=== PATIENT | female | born 1945 | race Caucasian/White ===

== ENCOUNTER → 2024-05-15 08:02 | Outpatient (REF) | payer MEDICARE, OTHER, SELFPAY ==
[2024-05-15 08:48] LABS: % Eosinophils 5.8 % (0-6); % Immature Granulocytes 0.4 % (0-0.5); % Monocytes 5.8 % (1.7-9.3); Absolute Basophils 0.1 10^3/uL (0-0.2); Absolute Eosinophils 0.3 10^3/uL (0-0.7); Absolute Lymphocytes 1.8 10^3/uL (1.2-3.4); Absolute Monocytes 0.3 10^3/uL (0.1-0.6); Absolute Neutrophils 2.4 10^3/uL (1.4-6.5); Hemoglobin 12.3 g/dL (12.0-16.0); Mean Corp Hgb Conc. 33.2 g/dL (33.0-37.0); Mean Corpuscular Hgb 29.7 pg (27.0-31.0); Mean Corpuscular Volume 89.4 fL (81.0-99.0); Mean Platelet Volume 10.1 fL (7.4-10.4); Nucleated Red Blood Cells % 0 %; Platelet Count 240 10^3/uL (130-400); Red Blood Cell Count 4.14 10^6/uL (4.20-5.40); Red Cell Dist. Width 12.7 % (11.5-14.5); White Blood Cell Count 4.8 10^3/uL (4.8-10.8)
[2024-05-15 09:53] LABS: ALT (SGPT) 11 U/L (0-35); AST (SGOT) 19 U/L (14-36); Albumin 4.5 g/dl (3.5-5.0); Alkaline Phosphatase 108 U/L (38-126); Blood Urea Nitrogen 27 mg/dl (7-17); Calcium 10.1 mg/dl (8.4-10.2); Carbon Dioxide 27 mmol/L (22-30); Chloride 104 mmol/L (98-107); Glucose 106 mg/dl (70-99); HDL Cholesterol 48 mg/dl; LDL Cholesterol, Calculated 218 mg/dl; Potassium 4.9 mmol/L (3.5-5.1); Sodium 141 mmol/L (135-145); Total Bilirubin 0.6 mg/dl (0.2-1.3); Total Cholesterol 311 mg/dl (50-199); Total Protein 7.1 g/dl (6.3-8.2); Triglyceride 229 mg/dl (10-149); Very Low Density Lipoprotein 45 mg/dl (0-30); eGFR > 60.00
[2024-05-15 09:55] LABS: TSH 2.76 uIU/ml (0.47-4.68)
== END ==
LOC: REG 08:02
PROVIDERS: ATTENDING PHYSICIAN Internal Medicine Cardiovascular Disease; FAMILY PHYSICIAN Specialist
DX: R07.9 Chest pain, unspecified (principal)
CPT/HCPCS: 36415; 80053; 80061; 84443; 85025

== ENCOUNTER → 2024-05-25 17:35 | Outpatient (REF) | payer MEDICARE, OTHER, SELFPAY | LOC: HWRCS 17:35 | PROVIDERS: ATTENDING PHYSICIAN Internal Medicine Cardiovascular Disease; FAMILY PHYSICIAN Specialist | DX: R07.9 Chest pain, unspecified (principal) | CPT/HCPCS: 93306 ==

== ENCOUNTER → 2024-10-01 09:19 | Outpatient (REF) | payer MEDICARE, OTHER, SELFPAY ==
[2024-10-01 10:16] LABS: % Basophils 1.2 % (0-2); % Immature Granulocytes 0.2 % (0-0.5); % Lymphocytes 34.1 % (20.5-51.1); % Monocytes 5.8 % (1.7-9.3); % Neutrophils 52.7 % (42.2-75.2); Absolute Basophils 0.1 10^3/uL (0-0.2); Absolute Eosinophils 0.3 10^3/uL (0-0.7); Absolute Lymphocytes 1.4 10^3/uL (1.2-3.4); Absolute Monocytes 0.2 10^3/uL (0.1-0.6); Absolute Neutrophils 2.2 10^3/uL (1.4-6.5); Hematocrit 37.8 % (37.0-47.0); Hemoglobin 12.6 g/dL (12.0-16.0); Mean Corp Hgb Conc. 33.3 g/dL (33.0-37.0); Mean Corpuscular Volume 86.9 fL (81.0-99.0); Mean Platelet Volume 10.2 fL (7.4-10.4); Nucleated Red Blood Cells % 0 %; Platelet Count 244 10^3/uL (130-400); Red Blood Cell Count 4.35 10^6/uL (4.20-5.40); Red Cell Dist. Width 13.4 % (11.5-14.5); White Blood Cell Count 4.1 10^3/uL (4.8-10.8)
[2024-10-01 10:28] LABS: Urine Albumin Negative (Neg - Trace); Urine Bilirubin Negative (Negative); Urine Character Clear (Clear); Urine Color Yellow; Urine Glucose Negative (Negative); Urine Ketone Negative (Negative); Urine Leukocyte Negative (Negative); Urine Nitrite Negative (Negative); Urine Occult Blood Negative (Negative); Urine Specific Gravity 1.015 (<1.030); Urine Urobilinogen Negative (Neg - 1+)
[2024-10-01 11:09] LABS: ALT (SGPT) 10 U/L (0-35); AST (SGOT) 17 U/L (14-36); Albumin 4.7 g/dl (3.5-5.0); Alkaline Phosphatase 94 U/L (38-126); Blood Urea Nitrogen 32 mg/dl (7-17); Calcium 10.2 mg/dl (8.4-10.2); Carbon Dioxide 30 mmol/L (22-30); Chloride 101 mmol/L (98-107); Glucose 115 mg/dl (70-99); HDL Cholesterol 45 mg/dl; Iron 84 ug/dl (37-170); Potassium 4.5 mmol/L (3.5-5.1); Sodium 141 mmol/L (135-145); Total Bilirubin 0.4 mg/dl (0.2-1.3); Total Protein 7.2 g/dl (6.3-8.2); Triglyceride 297 mg/dl (10-149); Very Low Density Lipoprotein 59 mg/dl (0-30); eGFR > 60.00
[2024-10-01 11:18] LABS: Percent Saturation 24 % (20-50); Total Iron Binding Capacity 338 ug/dl (265-497)
[2024-10-01 11:19] LABS: LDL Cholesterol, Calculated 220 mg/dl; Total Cholesterol 324 mg/dl (50-199)
[2024-10-01 11:20] LABS: Free T4 1.26 ng/dl (0.78-2.19)
[2024-10-01 11:27] LABS: Glycohemoglobin (HgbA1c) 5.7 % (4.0-5.6)
[2024-10-01 11:34] LABS: TSH 0.81 uIU/ml (0.47-4.68)
== END ==
LOC: REG 09:19
PROVIDERS: ATTENDING PHYSICIAN Nurse Practitioner Adult Health; FAMILY PHYSICIAN Internal Medicine Cardiovascular Disease
DX: E03.9 Hypothyroidism, unspecified (principal); R42 Dizziness and giddiness; E78.2 Mixed hyperlipidemia; I10 Essential (primary) hypertension; R79.9 Abnormal finding of blood chemistry, unspecified; D64.9 Anemia, unspecified
CPT/HCPCS: 36415; 72040; 80053; 80061; 81003; 83036; 83540; 83550; 84439; 84443; 85025

== ENCOUNTER → 2024-10-05 11:52 | Outpatient (REF) | payer MEDICARE, OTHER, SELFPAY | LOC: PAVMRI 11:52 | PROVIDERS: ATTENDING PHYSICIAN Nurse Practitioner Adult Health | DX: R42 Dizziness and giddiness (principal) | CPT/HCPCS: 70551 ==

== ENCOUNTER → 2024-10-29 13:32 | Outpatient (REF) | payer MEDICARE, OTHER, SELFPAY | LOC: RAD 13:32 | PROVIDERS: ATTENDING PHYSICIAN Nurse Practitioner Adult Health | DX: M25.551 Pain in right hip (principal) | CPT/HCPCS: 73502 ==

== ENCOUNTER → 2024-11-16 07:06 | Outpatient (REF) | payer MEDICARE, OTHER, SELFPAY | LOC: HWRAD 07:06 | PROVIDERS: ATTENDING PHYSICIAN Nurse Practitioner Adult Health | DX: R10.2 Pelvic and perineal pain (principal) | CPT/HCPCS: 76857 ==

== ENCOUNTER → 2025-03-22 12:49 | Outpatient (REF) | payer OTHER, SELFPAY | LOC: PAVMRI 12:49 | PROVIDERS: ATTENDING PHYSICIAN Otolaryngology | DX: H90.3 Sensorineural hearing loss, bilateral (principal); D33.3 Benign neoplasm of cranial nerves | CPT/HCPCS: 70551 ==

== ENCOUNTER → 2025-08-13 06:37 | Outpatient (REF) | payer OTHER, SELFPAY | LOC: MRI 06:37 | PROVIDERS: ATTENDING PHYSICIAN Nurse Practitioner Adult Health | DX: R10.2 Pelvic and perineal pain (principal); R35.0 Frequency of micturition; K59.00 Constipation, unspecified; M25.551 Pain in right hip | CPT/HCPCS: 72195 ==

== ENCOUNTER → 2025-08-13 08:03 | Outpatient (REF) | payer OTHER, SELFPAY ==
[2025-08-13 08:56] LABS: Hematocrit 37.2 % (37.0-47.0); Hemoglobin 12.1 g/dL (12.0-16.0); Mean Corp Hgb Conc. 32.5 g/dL (33.0-37.0); Mean Corpuscular Volume 89.6 fL (81.0-99.0); Nucleated Red Blood Cells % 0 %; Platelet Count 269 10^3/uL (130-400); Red Cell Dist. Width 12.8 % (11.5-14.5)
[2025-08-13 09:16] LABS: ALT (SGPT) < 10 U/L (0-35); AST (SGOT) 14 U/L (14-36); Albumin 4.5 g/dl (3.5-5.0); Alkaline Phosphatase 80 U/L (38-126); Blood Urea Nitrogen 15 mg/dl (7-17); Calcium 9.6 mg/dl (8.4-10.2); Carbon Dioxide 31 mmol/L (22-30); Chloride 103 mmol/L (98-107); Glucose 115 mg/dl (70-99); HDL Cholesterol 50 mg/dl; LDL Cholesterol, Calculated 168 mg/dl; Potassium 3.8 mmol/L (3.5-5.1); Sodium 142 mmol/L (135-145); Total Protein 6.9 g/dl (6.3-8.2); Very Low Density Lipoprotein 49 mg/dl (0-30); eGFR > 60.00
[2025-08-13 09:24] LABS: Vitamin D, 25-OH*** 30.4 ng/mL (30-80)
[2025-08-13 09:37] LABS: TSH 2.92 uIU/ml (0.47-4.68); Urine Character Clear (Clear)
[2025-08-13 09:48] LABS: Urine Red Blood Cell 0-2 /HPF (0-2); Urine Squamous Cell 21-25 /LPF (Few)
[2025-08-13 09:51] LABS: Glycohemoglobin (HgbA1c) 5.7 % (4.0-5.6)
== END ==
LOC: REG 08:03
PROVIDERS: ATTENDING PHYSICIAN Nurse Practitioner Adult Health
DX: I10 Essential (primary) hypertension (principal); E78.2 Mixed hyperlipidemia; E55.9 Vitamin D deficiency, unspecified; R73.9 Hyperglycemia, unspecified; E03.9 Hypothyroidism, unspecified
CPT/HCPCS: 80053; 80061; 81003; 81015; 82306; 83036; 84439; 84443; 85025; 87086

== ENCOUNTER 2025-09-20 10:34 | Emergency (ER) | payer OTHER, SELFPAY ==
[2025-09-20 11:01] VITALS: BP 138/76
[2025-09-20 11:57] VITALS: BP 169/82
--- NOTE | 2025-09-20 12:06 | ED.GENMED ---
History of Present Illness
General
Chief Complaint: Heart Rate Problem
Source: patient
Exam Limitations: none
Time Seen by Provider: 09/20/25 11:32
Nursing documentation reviewed up to this point in time: agreed with
History of Present Illness
History of Present Illness:
Note:
CHIEF COMPLAINT(S)
The patient is undergoing pre-operative testing where an abnormal EKG was discovered, leading to the current evaluation.
HISTORY OF PRESENT ILLNESS
The patient is a 80-year-old female who was found to have an abnormal EKG during pre-operative testing. She reports no current symptoms of chest pain or difficulty breathing. She mentions having pain at the site where she will have surgery, but no
fever is reported. The patient has a known history of atrial fibrillation diagnosed approximately four months prior, for which she follows up with a android architect. She has an upcoming cardiology appointment in November for a checkup. The concern with
atrial fibrillation includes the risk of thromboembolic events such as stroke due to potential blood pooling in the atria. The plan includes monitoring and discussion with a android architect to determine whether hospital admission or discharge with
medication is appropriate.
EXTERNAL RECORDS REVIEWED
The patient had prior cardiology consultations, and the name of the physician was ambiguous in the note, but an attempt to verify it revealed it might be Dr. Banks or a female android architect at a listed address known to the patient.
CHRONIC MEDICAL CONDITIONS SIGNIFICANTLY AFFECTING CARE
The patient has a documented history of atrial fibrillation.
REVIEW OF SYSTEMS
- Cardiovascular: History of atrial fibrillation.
- Neurological: No reported weakness or neurological deficits.
PHYSICAL EXAM
General: Alert, no acute distress.
Skin: Warm, dry.
Head: Normocephalic, atraumatic.
Neck: Supple, trachea midline.
Eyes, Ears, Nose, Mouth, and Throat: Oral mucosa moist.
Cardiovascular: Normal peripheral perfusion, No edema.
Respiratory: Respirations are non-labored.
Gastrointestinal: Abdomen nondistended.
Back: Normal range of motion, Normal alignment.
Musculoskeletal: Normal range of motion, normal strength.
Neurological: Alert and oriented to person, place, time, and situation, No focal neurological deficit observed.
Psychiatric: Cooperative, appropriate mood & affect.
PROBLEM LIST
Acute:
- Abnormal EKG during pre-operative testing
- Pain at surgical site
Chronic:
- Atrial fibrillation
PLAN
- Perform blood tests to assess current status.
- Consult with the patients android architect for further management advice.
- Monitor the patient to determine whether hospital admission is necessary or if the patient can be discharged with medications.
DIFFERENTIAL DIAGNOSIS
The Differential Diagnosis includes, in no particular order and is not limited to:
1. Atrial fibrillation
2. Other arrhythmias
3. Myocardial ischemia
4. Pulmonary embolism
5. Heart failure
6. Pericarditis
7. Valvular heart disease
8. Electrolyte abnormalities
9. Hypertensive crisis
10. Other non-cardiac causes like anxiety or pain at the surgical site.
Disposition:
SUMMARY OF ENCOUNTER
The patient, a 80-year-old female with a history of atrial fibrillation, was evaluated in the emergency department due to an abnormal EKG found during pre-operative testing. She was asymptomatic, with stable blood pressure. No indication for
antiarrhythmic medication was noted due to the presence of bradycardia.
DISPOSITION
The patient was discharged with instructions to follow up with her android architect.
MANAGEMENT OF THE PATIENTS CARE WAS DISCUSSED WITH
Management was discussed with Dr. Jeff Nuñez, a android architect.
PLAN
The patient is to follow up with her android architect.
MEDICATION RECONCILIATION
Apixaban 5 mg twice daily was prescribed for anticoagulation management in atrial fibrillation.
MEDICAL DECISION MAKING
-Complexity of Data Reviewed: Chronic conditions affecting care [Atrial fibrillation]
-Data:
Category 3
Discussion of management of the patients care was conducted with Dr. Jeff Nuñez, android architect.
-Risk:
Prescription medication was prescribed: Apixaban for anticoagulation in atrial fibrillation.
DIAGNOSIS
1. Atrial fibrillation (ICD-10: I48.91)
Past History
Past History
ED Past Medical History: HTN
ED Past Surgical History: Appendectomy
Social History
Tobacco: Former smoker
Personal:
Living: with family
Employment: Retired
Phy Exam
Physical Exam
Physical Exam:
.
Course
Orders/Labs/Results
Orders:
Orders
09/20/25 11:16
EKG [Electrocardiogram (*1)] Urgent
Reason for Study: PreOp
EKG- Treatment ONCE
09/20/25 11:51
Cardiac Monitoring- Treatment ONCE
IV Insert/Care/Rem.- Treatment PRN
09/20/25 12:07
Troponin I Urgent
09/20/25 12:21
Complete Blood Count/With Diff Urgent
Comprehensive Metabolic Panel Urgent
Magnesium Urgent
Abnormal Lab Results
09/20/25
12:21
RBC 4.19 L 10^6/uL
(4.20-5.40)
Hct 36.9 L %
(37.0-47.0)
MCHC 32.8 L g/dL
(33.0-37.0)
Eosinophils % 7.4 H %
(0-6)
BUN 18 H mg/dl
(7-17)
Glucose 108 H mg/dl
(70-99)
09/20/25 12:21
09/20/25 12:21
Vital Signs
Initial and Last Documented VS:
Initial Vital Signs
Temp Pulse Resp BP Pulse Ox
98.1 F 44 18 138/76 98
09/20/25 11:01 09/20/25 11:01 09/20/25 11:01 09/20/25 11:01 09/20/25 11:01
Last Documented Vital Signs
Temp Pulse Resp BP Pulse Ox
98.1 F 54 13 148/71 94
09/20/25 11:01 09/20/25 13:01 09/20/25 13:01 09/20/25 13:01 09/20/25 13:01
*Pulse Oximetry
SaO2: 96
Patient hypoxic: no
*Critical Care Note
Total Time (30-74mins, 75-104mins- exclusive of procedures): Not Applicable
ED Attending Note
-
Portions of this chart may have been created with voice recognition software.� Occasional wrong word or��sound alike� substitutions may have occurred due to the inherent limitations of voice recognition software.
Discharge Plan
Departure
Patient Disposition: Home (Routine Discharge)
Date of Disposition: 09/20/25
Time of Disposition: 13:11
Patient with high blood pressure during this ER visit?: Yes
Condition: Good
Discharge Problem:
Atrial fibrillation
Instructions: Atrial Fibrillation (DC), BLOOD PRESSURE
Prescriptions:
New
Eliquis 5 mg tablet
5 mg PO BID Qty: 60 0RF
No Action
oxycodone-acetaminophen 1 TABLET tablet
1 - 2 tab PO Q4HPRN PRN (Reason: prn for pain) Qty: 20 0RF
Patient Comments:
havent taken
cetirizine 10 MG tablet
10 mg PO DAILY
valsartan-hydrochlorothiazide 1 EACH tablet
12.5 mg PO DAILY
Patient Comments:
12.5 mg daily
levothyroxine 50 MCG tablet
50 mcg PO DAILY
olmesartan [Benicar] 40 MG tablet
12.5 mg PO Daily
Patient Comments:
Pt unsure of when last taken medication
omeprazole magnesium [Prilosec OTC] 20 MG tablet,delayed release (DR/EC)
20 mg PO Daily
cholecalciferol (vitamin D3) 2,000 UNIT tablet
2,000 unit PO Daily
Referrals:
Tere Medrano NP [Family Provider, Family Practice]
Brie Andrews DO [Active, Cardiology] - 09/21/25 9:00 am
Referral Note: You are scheduled to have placement of a [address] monitor [address] Dr. Andrews's office in the [place] on 09/21/2025 at 9 AM. You are then scheduled for an echocardiogram (ultrasound of the heart) at the [facility]
office on 09/29/2025 at 4 PM. The office is working on an appointment for you to see Dr. Andrews in the office coming up. Please call [phone] if you need to reschedule
Interventions
Interventions:
*Risk Screen - Suicide Last Done: 09/20/25 12:24
*General Assessment Last Done: 09/20/25 11:38
*Neglect/Abuse Screening Last Done: 09/20/25 12:24
*ED COVID-19 Vaccine History Last Done: 09/20/25 12:24
*ED Influenza Vaccine History Last Done: 09/20/25 12:24
*Nursing Disposition Last Done: 09/20/25 13:38
ED- Cardiac Assessment Last Done: 09/20/25 11:38
ED- Pulmonary Assessment Last Done: 09/20/25 11:38
Discharge Date and Time
Discharge Date/Time: 09/20/25 13:38
Print Language: DUTCH
[2025-09-20 12:23] VITALS: BMI 31.2
[2025-09-20 12:33] LABS: Hematocrit 36.9 % (37.0-47.0); Hemoglobin 12.1 g/dL (12.0-16.0); Mean Corp Hgb Conc. 32.8 g/dL (33.0-37.0); Mean Corpuscular Volume 88.1 fL (81.0-99.0); Nucleated Red Blood Cells % 0 %; Platelet Count 271 10^3/uL (130-400); Red Cell Dist. Width 13.4 % (11.5-14.5)
[2025-09-20 12:44] LABS: ALT (SGPT) < 10 U/L (0-35); AST (SGOT) 15 U/L (14-36); Albumin 4.4 g/dl (3.5-5.0); Alkaline Phosphatase 86 U/L (38-126); Blood Urea Nitrogen 18 mg/dl (7-17); Calcium 9.2 mg/dl (8.4-10.2); Carbon Dioxide 28 mmol/L (22-30); Chloride 102 mmol/L (98-107); Estimated Creatinine Clearance 58 ml/min; Glucose 108 mg/dl (70-99); Magnesium 1.7 mg/dl (1.6-2.3); Potassium 3.6 mmol/L (3.5-5.1); Sodium 136 mmol/L (135-145); Total Protein 7.1 g/dl (6.3-8.2); eGFR > 60.00
[2025-09-20 12:50] LABS: Troponin I < 0.012 ng/ml
[2025-09-20 13:01] VITALS: BP 148/71
== END 2025-09-20 13:38 | disposition home or self-care (01) ==
LOC: EMR 10:34
PROVIDERS: EMERGENCY PHYSICIAN Emergency Medicine; FAMILY PHYSICIAN Nurse Practitioner Adult Health
DX: I48.91 Unspecified atrial fibrillation (principal); I10 Essential (primary) hypertension; Z79.01 Long term (current) use of anticoagulants; Z87.891 Personal history of nicotine dependence
CPT/HCPCS: 99284; 80053; 83735; 84484; 85025; 93005

== ENCOUNTER → 2025-09-29 15:48 | Outpatient (REF) | payer OTHER, SELFPAY | LOC: HWRCS 15:48 | PROVIDERS: ATTENDING PHYSICIAN Internal Medicine Cardiovascular Disease; FAMILY PHYSICIAN Specialist | DX: I48.0 Paroxysmal atrial fibrillation (principal); I10 Essential (primary) hypertension | CPT/HCPCS: 93306 ==

== ENCOUNTER 2025-10-06 06:37 | Day surgery (SDC) | payer OTHER, SELFPAY ==
--- NOTE | 2025-09-20 10:41 | PTCARENOTE ---
Addendum entered by Oanh Smiley RN 09/20/25 10:52:
'informed' that a cardiac clearance.....
Original Note:
New onset Afib on today's Preadmission ECG. Patient denies ever having a history afib or any other cardiac problems. She is asymptomatic and color is good. BP 140/74, HR 52, 98% O2 sat @ 1000. Cardiac services was notified to have a saw repairer
confirm ECG and give further instructions. Dejah Ruiz stated is requesting the patient be taken to the Emergency Department. The patient called her daughter and then agreed to the plan. She was then transported to the ED via wheelchair
without incident. Clotilde at [facility]'s office was notified and inferred that a cardiac clearance would now be required prior to proceeding with planned robotic B/L inguinal hernia surgery on 10/04/25.
[2025-09-20 12:04] LABS: Hematocrit 39.0 % (37.0-47.0); Hemoglobin 12.7 g/dL (12.0-16.0); Mean Corp Hgb Conc. 32.6 g/dL (33.0-37.0); Mean Corpuscular Volume 87.4 fL (81.0-99.0); Platelet Count 307 10^3/uL (130-400); Red Cell Dist. Width 13.6 % (11.5-14.5)
[2025-09-20 12:32] LABS: Blood Urea Nitrogen 18 mg/dl (7-17); Calcium 9.7 mg/dl (8.4-10.2); Carbon Dioxide 32 mmol/L (22-30); Chloride 101 mmol/L (98-107); Glucose 101 mg/dl (70-99); Potassium 4.6 mmol/L (3.5-5.1); Sodium 141 mmol/L (135-145); eGFR > 60.00
[2025-10-06] VITALS (13 sets, daily range): BP systolic 113–151; BP diastolic 57–77
[2025-10-06] MEDS: TYLENOL 1000 MG PO (10:23)
[2025-10-06] MEDS: NORMOSOL-R/PLASMALYTE-A 1000 IV ×2 (10:43→15:45)
[2025-10-06] MEDS: DILAUDID 0.25 MG IV (13:51)
[2025-10-06] MEDS: TYLENOL PO (15:12)
--- NOTE | 2025-10-06 16:00 | PTCARENOTE ---
Pt arrived to [facility] s/p robotic b/l inguinal hernias with mesh. 3 lap sites and 1 poke site TURNTABLE ENGINEER with glue. 98% on 2L. Diminished at the bases. Pt DTV. Admission questions answered. Bed locked and in lowest position. Care ongoing.
[2025-10-06] MEDS: ZOFRAN 4 MG IV (16:06)
[2025-10-06] MEDS: TYLENOL 650 MG PO ×2 (17:01→20:31)
[2025-10-06] MEDS: LOVENOX 40 MG SC (17:03)
[2025-10-06] MEDS: ULTRAM 50 MG PO (22:07)
[2025-10-06] MEDS: MYLICON 80 MG PO (23:39)
[2025-10-07] MEDS: TYLENOL PO ×2 (00:12→04:53)
--- NOTE | 2025-10-07 03:28 | PTCARENOTE ---
Patient's stock chaser showing bradycardia with heart rate in the 40-50s with occasional drops to 39 and a few pauses. The longest pause was 2.09. Patient asymptomatic. PUBLIC WEIGHER notified. PUBLIC WEIGHER stated that it is 'noted in her previous admission cardiac
clearance; nocturnal pauses up to 2.8 seconds.' Care ongoing.
[2025-10-07 03:34] VITALS: BP 135/71
[2025-10-07 07:00] VITALS: BP 142/79
--- NOTE | 2025-10-07 07:15 | W.PN.GS2 ---
Today's Communication / Plan
-
-- DC
Assessment / Plan
-
Patient is a 80 yo F POD#1 s/p RAL bl inguinal hernia repair with mesh
AVSS
No episodes of A-fib with RVR
Stable for DC
-- Regular diet
-- Pain control: Tylenol, Tramadol
-- HLIV
-- Home meds
-- DC
Subjective Data
-
Date of Service: October 07, 2025
No complaints. Pain well controlled. No chest pain or SOB.
Objective Data
-
Intake and Output
10/06/25 10/07/25 10/08/25
06:59 06:59 06:59
Intake Total 630 / 630
Output Total 250 / 250
Balance 380 / 380
Intake:
Oral fluids 240 / 240
IV fluids (Total) 390 / 390
Normosol 150 / 150
Output:
Urine, Voided 250 / 250
Other:
Number of approximated SMALL 1
amounts of urine
Number of approximated MODERATE 2
amounts of urine
Vital Signs
Temp Pulse Resp BP Pulse Ox
98.9 F 58 16 135/71 95
10/07/25 03:34 10/07/25 03:34 10/07/25 03:34 10/07/25 03:34 10/07/25 03:34
Lab Results
09/20/25 10:08
09/20/25 10:08
Calcium 9.7 mg/dl (8.4-10.2) 09/20/25 10:08
Physical Exam
-
Gen: NAD
Abd: soft, mild tenderness, ND, non-peritoneal, no palpable hernia bilaterally, no significant swelling or seroma
Patient has a davis catheter: No
Patient has a central line: No
[2025-10-07] MEDS: SYNTHROID 112 MCG PO (08:57)
[2025-10-07] MEDS: TYLENOL 650 MG PO (08:57)
[2025-10-07] MEDS: LASIX 20 MG PO (08:57)
[2025-10-07] MEDS: PROTONIX 40 MG PO (08:57)
--- NOTE | 2025-10-07 10:01 | CM ---
Cm reviewed medical records. Patient no needs noted.
PLAN: home no needs.
== END 2025-10-07 09:41 | disposition home or self-care (01) ==
LOC: SDS 06:37
PROVIDERS: ATTENDING PHYSICIAN Surgery; FAMILY PHYSICIAN Nurse Practitioner Adult Health
DX: K40.20 Bilateral inguinal hernia, without obstruction or gangrene, not specified as recurrent (principal)
CPT/HCPCS: 49650; 36415; 80048; 85027; 93005; C1781